=== PATIENT | male | born 1995 | race Caucasian/White ===

== ENCOUNTER 2019-06-20 13:24 | Emergency (ER) | payer MEDICAID, OTHER ==
[~2019-06-20] VITALS: Ht 170.2 cm; Wt 59.0 kg
[2019-06-20] MEDS ORDERED: PENI500T2 PO (14:27)
== END 2019-06-20 14:37 | disposition home or self-care (01) ==
LOC: ER 13:24
DX: K01.1 Impacted teeth (principal); K08.89 Other specified disorders of teeth and supporting structures; Z79.2 Long term (current) use of antibiotics
CPT/HCPCS: 99283

== ENCOUNTER 2019-09-26 18:06 | Emergency (ER) | payer MEDICAID ==
[~2019-09-26] VITALS: Ht 167.6 cm; Wt 54.5 kg
[2019-09-26 18:24] VITALS: BP 129/83
[2019-09-26] MEDS ORDERED: CEPH250T PO (19:25)
[2019-09-26] MEDS ORDERED: MUPI22OI30 TOP (19:25)
== END 2019-09-26 19:34 | disposition home or self-care (01) ==
LOC: ER 18:06
DX: S00.31XA Abrasion of nose, initial encounter (principal); S00.511A Abrasion of lip, initial encounter; S60.512A Abrasion of left hand, initial encounter; S40.812A Abrasion of left upper arm, initial encounter; L03.211 Cellulitis of face; V00.131A Fall from skateboard, initial encounter; Y93.51 Activity, roller skating (inline) and skateboarding; Y92.89 Other specified places as the place of occurrence of the external cause; Y99.9 Unspecified external cause status
CPT/HCPCS: 99284

== ENCOUNTER 2020-05-28 11:49 | Emergency (ER) | payer MEDICAID, OTHER ==
[~2020-05-28] VITALS: Ht 170.2 cm; Wt 74.0 kg
[2020-05-28 11:51] VITALS: BP 128/80
[2020-05-28] MEDS ORDERED: LIDOcaine 1% W/epiNEPHrine 1:200,000 10ml vial IJ ONE (12:30)
[2020-05-28] MEDS ORDERED: TETanus/Pertussis (Acell)/Diphther VAC/PF (Tdap-Adult) 0.5ml syringe IMVAC ONE (12:30)
[2020-05-28] MEDS ORDERED: DOXY100C43 PO (12:31)
[2020-05-28] MEDS ORDERED: bacitracin 15gm ointment TP ONE (13:00)
== END 2020-05-28 13:15 | disposition home or self-care (01) ==
LOC: ER 11:49
DX: L02.11 Cutaneous abscess of neck (principal); R53.83 Other fatigue; Z79.899 Other long term (current) drug therapy
CPT/HCPCS: 10060; 90471; 90715; 99283

== ENCOUNTER 2021-03-15 19:20 | Emergency (ER) | payer MEDICAID, OTHER ==
[~2021-03-15] VITALS: Ht 165.1 cm; Wt 63.6 kg
[2021-03-15 19:52] VITALS: BP 117/79
[2021-03-15] MEDS ORDERED: HYDR-3972 PO (21:24)
[2021-03-15] MEDS ORDERED: IBUP-1986 PO (21:24)
== END 2021-03-15 21:50 | disposition home or self-care (01) ==
LOC: ER 19:20
DX: S63.501A Unspecified sprain of right wrist, initial encounter (principal); Z79.899 Other long term (current) drug therapy; Z87.81 Personal history of (healed) traumatic fracture; W28.XXXA Contact with powered lawn mower, initial encounter; Y93.89 Activity, other specified; Y92.89 Other specified places as the place of occurrence of the external cause; Y99.8 Other external cause status
CPT/HCPCS: 29125; 73110; 73130; 99283; 99284

== ENCOUNTER 2022-06-08 20:26 | Emergency (ER) | payer MEDICAID ==
[~2022-06-08] VITALS: Ht 167.6 cm; Wt 59.1 kg
[~2022-06-08 20:26] MED LIST: IBUP-1986 PO
[2022-06-08 20:44] VITALS: BP 128/85
[2022-06-09] MEDS ORDERED: TETanus/Pertussis (Acell)/Diphther VAC/PF (Tdap-Adult) 0.5ml syringe IMVAC ONE
== END 2022-06-09 00:09 | disposition home or self-care (01) ==
LOC: ER 22:32
DX: S61.011A Laceration without foreign body of right thumb without damage to nail, initial encounter (principal); W26.0XXA Contact with knife, initial encounter; Y93.89 Activity, other specified; Y92.89 Other specified places as the place of occurrence of the external cause; Y99.8 Other external cause status
CPT/HCPCS: 12001; 90471; 90715; 99283; A6449